=== PATIENT | male | born 1955 | race Caucasian/White ===

== ENCOUNTER 2020-03-05 12:38 | Inpatient (IN) | payer OTHER, SELFPAY ==
[~2020-03-05] VITALS: Ht 152.4 cm; Wt 81.0 kg
--- NOTE | 2020-03-05 12:54 | NUR ---
RA SAT AT 85%, AFTER NASAL CANNULA AT 3LPM PLACED PT O2 SAT AT 92% WITH GOOD WAVE FORM.
--- NOTE | 2020-03-05 12:55 | NUR ---
PT BIB FAMILY C/C GENERALIZE WEAKNESS X 6 DAYS STS SOB X 3 DAYS SAW BY ER PLACED ON MONITOR AWAITING FOR DR RAVINDER WONG
[2020-03-05 13:18] LABS: BASOPHIL % 0.1 % (0-2); PLATELET COUNT 208 x10^3mcL (130-400); RED CELL DISTRIBUTION WIDTH 13.7 % (11.5-14.5)
[2020-03-05 13:30] LABS: CALCIUM 8.2 mg/dL (8.5-10.1); CARBON DIOXIDE 23.2 mmol/L (21-32); CHLORIDE SERUM 101 mmol/L (98-107); GFR1 > 60 mL/min; GLUCOSE SERUM 198 mg/dL (74-106); POTASSIUM SERUM 3.6 mmol/L (3.5-5.1); SODIUM SERUM 137 mmol/L (136-145)
--- NOTE | 2020-03-05 13:30 | NUR ---
PLEASE ENTER FULL NAMES OF IN FLIGHT TECHNICIAN/RN Patient data collected by (IN FLIGHT TECHNICIAN): GOPAL HOLGUIN Assessment reviewed and completed by (RN): JENI AG RN
--- NOTE | 2020-03-05 13:39 | NUR ---
STARTED ON IV ATB
[2020-03-05 13:46] LABS: ALKALINE PHOSPHATASE 84 U/L (46-116); ALT/SGPT 60 U/L (16-63); AST/SGOT 60 U/L (15-37); BILIRUBIN TOTAL 0.9 mg/dL (0.20-1.00); LACTIC DEHYDROGENASE (LDH) 591 U/L (100-190); TOTAL PROTEIN, SERUM 7.7 g/dL (6.4-8.2)
[2020-03-05 13:48] LABS: ALBUMIN 2.5 g/dL (3.4-5.0)
[2020-03-05 13:57] LABS: C REACTIVE PROTEIN 31.1 mg/dL (<=0.9)
[2020-03-05 14:24] LABS: UA SPECIFIC GRAVITY >=1.030 (1.005-1.035); microscopic required? YES; urine erythrocyte NEGATIVE (NEGATIVE)
--- NOTE | 2020-03-05 15:18 | NUR ---
RECEIVED PT FROM ER, PT ABLE TO WALK TO ROOM. AWAKE/ALERT AND ORIENTED. SPEAK LITTLE BIT PARAGUAYAN, MAINLY MEXICAN. DENIES PAIN, SOB ON EXERTION NOTED. MILD LABORED BREATHING NOTED, PLACE ON O2 4LNC, O2SAT 94% AND TELE #24 NSR, HR [address] ELEVATED NOTED. ORIENTED TO CALL LIGHT AND WITHIN REACH, COVID/MRSA SWAB DONE. AYAN RN AT BEDSIDE INTRODUCE TO PATIENT AND RESUME CARE.
[2020-03-05 15:23] VITALS: BP 182/70
[2020-03-05 16:55] VITALS: BP 182/70
--- NOTE | 2020-03-05 18:29 | NUR ---
PATIENT WITH RT. ABLE TO SELF PRONE. PATIENT DENIES SOB AT THIS TIME. WILL CONTINUE TO MONITOR AND ENDORSE TO ONCOMING NURSE.
--- NOTE | 2020-03-05 19:30 | NUR ---
RECEIVED PT FROM AYAN ALCAZAR. PT IS AAOX4 DENIES PIÑA/DIZZINESS. BREATHING EVEN/UNLABORED ON NC 4L/MIN NO SOB NOTED, O2SAT 95%. TELE #24 SR HR 85 DENIES CHEST PAIN/PRESSURE. IV RAC PATENT, FLUSHED WELL SL. AMBULATORY, BSC AND URINAL AT BEDSIDE. NO ACUTE DISTRESS NOTED. SAFETY PRECAUTIONS IN PLACE. WILL MONITOR.
[2020-03-05 21:50] VITALS: BP 158/74
--- NOTE | 2020-03-05 22:46 | NUR ---
REPORT GIVEN TO KELI ALCAZAR FOR CONTINUITY OF CARE.
--- NOTE | 2020-03-05 23:00 | NUR ---
RESUMING CONTINUITY OF CARE. PT RESTING COMFORTABLY. SAO2 READING 93%. DENIES SOB OR PAIN A THIS TIME. CONTACT AND DROPLET PRECAUTIONS IN PLACE. BED IN LOWEST POSITION. CALL LIGHT WITHIN REACH. WILL CONTINUE TO MONITOR.
--- NOTE | 2020-03-06 03:57 | NUR ---
PT RESTING COMFORTABLY. SAO2 READING 93% ON 4LNC. NO RESP DISTRESS NOTED. WILL CONTINUE TO MONITOR.
[2020-03-06 06:20] VITALS: BP 151/85
--- NOTE | 2020-03-06 06:33 | NUR ---
PT RESTED COMFORTABLY THROUGHOUT THE NIGHT WITH NO ACUTE EVENTS OCCURRING DURING THE SHIFT. BREATHING IS EVEN AND UNLABORED ON 5LNC. PT COMPLIANT WITH PRONE POSITIONING. SAO2 READING 94%. DENIES SOB AT THIS TIME. CONTACT AND DROPLET PRECAUTIONS IN PLACE. COMFORT AND SAFETY MEASURES MAINTAINED. ALL NEEDS ASSESSED AND ATTENDED TO. WILL CONTINUE TO MONITOR AND ENDORSE CARE TO DAY SHIFT NURSE.
[2020-03-06 06:53] LABS: BASOPHIL % 0.2 % (0-2); PLATELET COUNT 227 x10^3mcL (130-400)
[2020-03-06 07:13] LABS: CALCIUM 8.8 mg/dL (8.5-10.1); CARBON DIOXIDE 24.6 mmol/L (21-32); CHLORIDE SERUM 104 mmol/L (98-107); CREATININE SERUM 0.9 mg/dL (0.7-1.3); GFR1 > 60 mL/min; GLUCOSE SERUM 167 mg/dL (74-106); MAGNESIUM 2.6 mg/dL (1.8-2.4); PHOSPHOROUS 4.2 mg/dL (2.5-4.9); POTASSIUM SERUM 4.3 mmol/L (3.5-5.1); SODIUM SERUM 140 mmol/L (136-145)
--- NOTE | 2020-03-06 07:27 | NUR ---
RECEIVED PATIENT. AAOX4. STABLE. REMAINS ON 5L NC WITH O2 SATURATION OF 94%. NO ACUTE RESP DISTRESS NOTED. NO C/O PAIN. IV SITE INTACT AND PATENT, SALINE LOCKED. NO ERYTHEMA/SWELLING NOTED. SAFETY PREC IN PLACE. CALL LIGHT WITHIN REACH. WILL CONTINUE TO MONITOR.
[2020-03-06 08:30] VITALS: BP 151/82
--- NOTE | 2020-03-06 12:20 | NUR ---
PATIENT BRUSHED TEETH IN THE RESTROOM FOR ABOUT 5 MINS. PATIENT HAD EPISODE OF DESATURATING TO THE 70'S BUT WENT BACK TO 90% WHEN BACK ON OXYGEN 5L NC. NO ACUTE RESP DISTRESS NOTED. PATIENT STABLE. WILL CONTINUE TO MONITOR.
[2020-03-06 12:35] VITALS: BP 143/82
--- NOTE | 2020-03-06 16:00 | NUR ---
PATIENT STABLE. NO ACUTE CHANGES. WILL CONTINUE TO MONITOR.
--- NOTE | 2020-03-06 16:29 | NUR ---
DR. YI MADE AWARE OF CRP 27.2 AND MG 2.6 AND CLARIFIED ORDERED BLOOD SUGAR CHECK AT 1630. PER DR. YI, THIS ORDER MAY BE DUE TO HIGH AIC. DR. YI MADE AWARE THAT THERE IS NO SLIDING SCALE IN CASE THE PATIENT NEEDS INSULIN. DR. YI VERBALIZED UNDERSTANDING. WILL CONTINUE TO MONITOR.
[2020-03-06 17:09] VITALS: BP 142/98
--- NOTE | 2020-03-06 19:20 | NUR ---
PATIENT STABLE. ALL NEEDS MET. ENDORSED CARE TO REPOSSESSION AGENT NURSE.
--- NOTE | 2020-03-06 19:35 | NUR ---
RECEIVED REPORT FROM DAY SHIFT RN. PT RESTING IN BED. AA&O X4. ON O2 5L VIA NC. DIMINISHED LUNG SOUNDS TO DARIANA BASES. BREATHING EVEN AND UNLABORED. NO C/O CHEST PAIN. IV TO RAC, SALINE LOCKED. SAFETY MEASURES IN PLACE. DEMONSTRATED HOW TO USE THE CALL LIGHT FOR ASSISTANCE. CALL LIGHT WITHIN REACH.
--- NOTE | 2020-03-06 21:39 | NUR ---
COVID TEST RESULT: POSITIVE. ON DROPLET AND CONTACT PRECAUTIONS.
[2020-03-06 22:48] VITALS: BP 131/62
[2020-03-07 05:39] VITALS: BP 158/88
--- NOTE | 2020-03-07 07:00 | NUR ---
PT RESTED IN LONG INTERVALS THROUGHOUT SHIFT. ON O2 5L VIA NC. O2 SAT 94%. NO C/O SOB OR CHEST PAIN. NO DISTRESS NOTED. IV SALINE LOCKED TO RAC. SAFETY MEASURES IN PLACE. CALL LIGHT WITHIN REACH. DROPLET AND CONTACT PRECAUTIONS MAINTAINED. WILL ENDORSE CARE TO DAY SHIFT RN.
--- NOTE | 2020-03-07 07:30 | NUR ---
RECEIVED PATIENT. IN BED, AAOX4. REMAINS ON 5L NC WITH O2 SAT 91%. NO ACUTE RESP DISTRESS NOTED. NO C/O PAIN. IV SITE, WNL. SAFETY PREC IN PLACE. CALL LIGHT WITHIN REACH. PATIENT MADE AWARE THAT HE IS COVID POSITIVE. PATIENT VERBALIZED UNDERSTANDING. WILL CONTINUE TO MONITOR.
--- NOTE | 2020-03-07 07:44 | NUR ---
PATIENT DESATURATING TO LOW 80'S. PER PATIENT IT IS BECAUSE HE MOVED. OXYGEN INCREASED TO 6L NC AND RT MADE AWARE. PER RT, THEY WILL CHECK UP ON PATIENT SOON POSSIBLE. WILL CONTINUE TO MONITOR.
[2020-03-07 07:45] LABS: BASOPHIL % 0.3 % (0-2); PLATELET COUNT 302 x10^3mcL (130-400)
--- NOTE | 2020-03-07 07:50 | NUR ---
RT AT BEDSIDE. PER RT, PATIENT WILL BE PUT ON OXYMIZER AND CONTINUE WITH RT PROTOCOL AND SEE IF THIS HELPS THE PATIENT BETTER. WILL CONTINUE TO MONITOR.
--- NOTE | 2020-03-07 09:20 | NUR ---
PATIENT OXYGEN INCREASED TO 8L OXYMIZER AND WITH SATURATION AT 92%. PATIENT STABLE. DENIES DIFFICULTY BREATHING. ENCOURAGED TO BE ON PRONE POSITIONING. PATIENT VERBALIZED UNDERSTANDING. WILL CONTINUE TO MONITOR.
[2020-03-07 09:31] VITALS: BP 154/84
[2020-03-07 10:24] LABS: CALCIUM 8.9 mg/dL (8.5-10.1); CARBON DIOXIDE 24.6 mmol/L (21-32); CHLORIDE SERUM 107 mmol/L (98-107); CREATININE SERUM 0.9 mg/dL (0.7-1.3); GFR1 > 60 mL/min; GLUCOSE SERUM 105 mg/dL (74-106); MAGNESIUM 2.6 mg/dL (1.8-2.4); PHOSPHOROUS 4.4 mg/dL (2.5-4.9); SODIUM SERUM 144 mmol/L (136-145)
--- NOTE | 2020-03-07 11:35 | NUR ---
PATIENT STABLE. REMAINS ON 8L OXYMIZER WITH 93% O2 SATURATION. NO ACUTRE RESP DISTRESS NOTED. WILL CONTINUE TO MONITOR.
--- NOTE | 2020-03-07 12:00 | NUR ---
DR. SANTORO MADE AWARE ABOUT CRP 10.2, BUN 26.0, AND MG 2.6. NO NEW ORDERS AT THIS TIME. WILL CONTINUE TO MONITOR.
[2020-03-07 13:07] VITALS: BP 152/85
--- NOTE | 2020-03-07 16:27 | NUR ---
PATIENT IS TRANSFERRED TO [facility] UNIT ROOM 223-B VIA WHEELCHAIR ON 8L OXYMIZER. O2 SATURATION AT 94% AT THIS TIME. MILD SOB NOTED WHEN AMBULATING DURING TRANSFER. ALL BELONGINGS TRANSFERRED WITH PATIENT. WILL CONTINUE TO MONITOR.
[2020-03-07 17:38] VITALS: BP 145/94
--- NOTE | 2020-03-07 18:45 | NUR ---
PATIENT STABLE. REMAINS ON 8L OXYMIZER WITH 93% O2 SATURATION. NO ACUTE RESP DISTRESS NOTED. ALL NEEDS MET. WILL ENDORSE ALL CARE TO MEDICAL AFFAIRS DIRECTOR NURSE.
--- NOTE | 2020-03-07 19:35 | NUR ---
Pt. received from day shift, currently resting in bed. Pt. noted to be a/o x4, able to make simple needs known, able to follow commands, no c/o h/a, primarily Hebrew speaking, can understand some Sao Tomean. Pt. is on tele 24, NSR, no c/o chest pain at this time, will cont.t o monitor. Pt. breathign e/u on 8L via oxymizer, satting well at 94-96% at this time, no c/o SOB or s/o distress. Pt. LBM 03/05, no c/o of discomfort, bed side urinal, encoruaged to use prone positoin, no skin issues or c/o pain at this time, will cont. to monitor. IV site RAC 20g, no no s/o drainage, dressing CDI. Otherwise, pt. stable, will cont. to monitor.
[2020-03-07 23:04] VITALS: BP 145/58
--- NOTE | 2020-03-08 01:01 | NUR ---
Pt. needs have been anticipated, no acute distress noted or changes. Pt. able to make needs known, will cont. to deniz.
[2020-03-08 05:47] VITALS: BP 151/83
--- NOTE | 2020-03-08 05:54 | NUR ---
Pt. noted to be resting thorughout shift, no acute distress noted. Pt. satting well throughout the night, will cont. to monitor and endorse care to next shift RN.
--- NOTE | 2020-03-08 07:15 | NUR ---
RECEIVED PT IN BED AWAKE, ALERT, ABLE TO MAKE NEEDS KNOWN. ON DROPLET PRECAUTION FOR COVID19. ON 8L VIA OXYMIZER AT 92%02SAT, DENIES SOB. NO ACUTE RESPIRATORY DISTRESS. ON TELE 24. DENIES PAIN OR DISCOMFORT AT THIS TIME. IV SITE TO [facility]. BED IN LOWEST POSITION. CALL LIGHT WITHIN REACH. WILL CONTINUE TO MONITOR.
[2020-03-08 08:02] LABS: BASOPHIL % 0.3 % (0-2); PLATELET COUNT 335 x10^3mcL (130-400); RED CELL DISTRIBUTION WIDTH 13.8 % (11.5-14.5)
[2020-03-08 09:07] LABS: C REACTIVE PROTEIN 7.2 mg/dL (<=0.9); CARBON DIOXIDE 25.1 mmol/L (21-32); CHLORIDE SERUM 104 mmol/L (98-107); CREATININE SERUM 0.9 mg/dL (0.7-1.3); GFR1 > 60 mL/min; GLUCOSE SERUM 99 mg/dL (74-106); SODIUM SERUM 141 mmol/L (136-145)
[2020-03-08 09:10] LABS: MAGNESIUM 2.5 mg/dL (1.8-2.4); PHOSPHOROUS 4.1 mg/dL (2.5-4.9)
[2020-03-08 10:06] VITALS: BP 158/82
[2020-03-08 12:51] VITALS: BP 141/85
[2020-03-08 16:25] VITALS: BP 131/81
--- NOTE | 2020-03-08 18:59 | NUR ---
PT IN BED AWAKE, IN ROOM AMBULATING FREQUENTLY. ON DROPLET ISOLATION FOR COVID19. CONTINUE WITH 8L VIA OXYMIZER WITH 94%SAT. DENIES PAIN OR DISCOMFORT AT THIS TIME. IV SITE TO RAC SALINE LOCK. ON TELE 24. BED IN LOWEST POSITION. WILL ENDORSE CARE TO INCOMING NURSE.
--- NOTE | 2020-03-08 19:35 | NUR ---
Pt. received from day shift, currently resting in bed. Pt. is a/o x4, able to make simple needs known, able to follow simple commands, no c/o h/a, primarily Omani speaking, can understand simple Wolof. Pt. has no c/o chest pain or pain at this time, will cont. to monitor. Pt. on 8L oxymizer, breathing e/u, no acute distress or SOB noted. Pt. noted to be SOB upon exertion. LBM today, no issues reported, pt. BRP and urinal at bedside. Pt. has gen weakness, but able to reposition self. Pt. has no skin issues or c/o pain, IV site on RAC 20 g patent and dressing CDI. Otherwise, pt. stable, will cont. to monitor.
[2020-03-08 21:53] VITALS: BP 145/87
--- NOTE | 2020-03-09 01:00 | NUR ---
Pt. no acute changes throughout shift, noted to be resting. will cont. to monitor at this time.
[2020-03-09 05:31] VITALS: BP 139/80
--- NOTE | 2020-03-09 05:54 | NUR ---
Pt. noted to be resting throughout shift, no acute distress noted. Pt. ambulatory throughout room, able to make needs knonw, and follow commands, will cont. to monitor and endorse care to next shift Rn.
[2020-03-09 07:26] LABS: CALCIUM 8.7 mg/dL (8.5-10.1); CARBON DIOXIDE 25.2 mmol/L (21-32); CHLORIDE SERUM 104 mmol/L (98-107); CREATININE SERUM 0.8 mg/dL (0.7-1.3); GFR1 > 60 mL/min; GLUCOSE SERUM 96 mg/dL (74-106); POTASSIUM SERUM 3.7 mmol/L (3.5-5.1); SODIUM SERUM 140 mmol/L (136-145)
[2020-03-09 08:00] VITALS: BP 141/79
--- NOTE | 2020-03-09 08:25 | NUR ---
0700: REPORT TAKEN FROM CUSTOMS EXAMINER NURSE, PER REPORT THE PATIENT IS ALERT AND ORIENTED AND IN NO DISTRESS AT THIS TIME. PATIENT IS ON TELE 24 AND FOUND TO BE NSR AT TIME OF REPORT, AND SATS ARE 94% ON 8 LITERS OXYMIZER PER RPEORT. WILL CONTINUE TO MONITOR.
[2020-03-09 12:00] VITALS: BP 157/82
[2020-03-09 17:35] VITALS: BP 136/54
--- NOTE | 2020-03-09 19:17 | NUR ---
REPORT GIVEN TO ADULT BASIC EDUCATION MANAGER NURSE, ALL QUESTIONS ADDRESSED, CARE ENDORSED
--- NOTE | 2020-03-09 19:35 | NUR ---
RECIEVED PT FROM PREVIOUS SHIFT NURSE. PT RESTING IN BED, EASILY AROUSABLE, AOX4, ABLE TO FOLLOW COMMANDS, PRIMARILY ESTONIAN SPEAKING BUT ABLE TO LET NEEDS KNOWN, DENIES PIÑA,N/V, OR PAIN AT THE MOMENT. RR EVEN AND UNLABORED ON 8L OXYMIZER, CHEST RISING EQUALLY, DENIES SOB OR DIFFICULTY BREATHING. TELE #24 NSR, CONT PULSE OX: 94%, DENIES CHEST PAIN OR PRESSURE. NO SIGNS OF ACUTE CHANGE OR DISTRESS NOTED. IV RAC WNL, NO ERYTHEMA, EDEMA, OR DRAINAGE NOTED. PT ON CONTACT/DROPLET ISOLATION FOR COVID-19 (+). PT IS ENCOURAGED TO PRONE. BED IN LOWEST POSITION, CALL LIGHT WITHIN REACH, AND SIDE RAILS UP X2. WILL CONTINUE TO MONITOR.
[2020-03-09 22:12] VITALS: BP 99/50
--- NOTE | 2020-03-10 04:55 | NUR ---
PT RESTING COMFORTABLY IN BED, EASILY AROUSABLE. RR EVEN AND UNLABORED ON 8L OXYMIZER, CHEST RISING EQUALLY. TELE #24 NSR, CONT PULSE OX 02: 94%. NO SIGNS OF ACUTE CHANGE OR DISTRESS NOTED. BED IN LOWEST POSITION, SIDE RAILS UP X2, AND CALL LIGHT WITHIN REACH. WILL CONTINUE TO MONITOR.
--- NOTE | 2020-03-10 06:24 | NUR ---
PT RESTING ON SIDE, EASILY AROUSABLE. RR EVEN AND UNLABORED ON 8L OXYMIZER, CHEST RISING EQUALLY. TELE #24 NSR, CONT PULSE OX 02: 92%. NO SIGNS OF ACUTE CHANGE OR DISTRESS NOTED THROUGHOUT THE SHIFT. ALL NEEDS MET. IV RAC WNL, NO ERYTHEMA, EDEMA, OR DRAINAGE NOTED. PT ON DROPLET/CONTACT ISOLATION FOR COVID-19(+). BED IN LOWEST POSITION, SIDE RAILS UP X2, AND CALL LIGHT WITHIN REACH. WILL ENDORSE CARE TO ONCOMING SHIFT NURSE, AND WILL CONTINUE TO MONITOR.
[2020-03-10 06:25] VITALS: BP 122/77
--- NOTE | 2020-03-10 07:41 | NUR ---
RECEIVED PT FROM NIGHT NURSE. PT A/A. TELE 24, NSR. BREATHING EQUAL/UNLABORED ON 8L/OXYMIZER, SATING AT 95%. ON CONT PULSE OX. IV SITE WNL. BED IN LOW POSITON, CALL LIGHT IN REACH, SAFETY PRECAUTIONS IN PLACE. WILL CONTINUE TO MONITOR
[2020-03-10 07:59] LABS: ALKALINE PHOSPHATASE 76 U/L (46-116); ALT/SGPT 118 U/L (16-63); AST/SGOT 49 U/L (15-37); BILIRUBIN TOTAL 0.7 mg/dL (0.20-1.00); CALCIUM 8.8 mg/dL (8.5-10.1); CARBON DIOXIDE 24.4 mmol/L (21-32); CHLORIDE SERUM 105 mmol/L (98-107); CREATININE SERUM 0.8 mg/dL (0.7-1.3); GFR1 > 60 mL/min; GLUCOSE SERUM 100 mg/dL (74-106); POTASSIUM SERUM 3.9 mmol/L (3.5-5.1); SODIUM SERUM 139 mmol/L (136-145); TOTAL PROTEIN, SERUM 6.8 g/dL (6.4-8.2)
[2020-03-10 08:11] LABS: ALBUMIN 2.3 g/dL (3.4-5.0)
[2020-03-10 09:14] VITALS: BP 110/63
[2020-03-10 12:40] VITALS: BP 115/68
--- NOTE | 2020-03-10 12:59 | NUR ---
PT SITTING UP IN CHAIR A/A. BREATHING EQUAL/UNLABORED ON 8L/OXYMIZER. EDUCATED ON REMDESIVIR, VERBALIZED UNDERSTANDING. IVF INFUSING, SITE WNL. NO ACUTE CHANGES/PAIN/DISTRESS. WILL CONTINUE TO MONITOR
[2020-03-10 16:14] VITALS: BP 121/69
--- NOTE | 2020-03-10 18:20 | NUR ---
PT SITTING UP A/A. BREATHING EQUAL/UNLABORED ON 8L/OXYMIZER, SATING AT 92%. TELE 24, NSR. IV SITE WNL. NO ACUTE CHANGES/PAIN/DISTRESS. BED IN LOW POSITION, CALL LIGHT IN REACH, SAFETY PRECAUTIONS IN PLACE. WILL ENDORSE TO NIGHT NURSE
--- NOTE | 2020-03-10 19:56 | NUR ---
RECIEVED PT FROM PREVIOUS [facility] NURSE. PT FOUNDING LYING ON SIDE, EASILY AROUSABLE, AOX4, ABLE TO FOLLOW COMMANDS, DENIES PIÑA, N/V, OR PAIN AT THE MOMENT, NO FACIAL DROOPING NOTED, AND PRIMARILY CYPRIOT SPEAKING BUT ABLE TO LET NEEDS KNOWN. RR EVEN AND UNLABORED BREATHING ON 8L OXYMIZER, ENCOURAGED TO PRONE. TELE #24 NSR, CONT PULSE OX O2:92%. NO SIGNS OF ACUTE CHANGE OR DISTRESS NOTED. IV RAC WNL, NO ERYTHEMA, EDEMA, OR DRAINAGE NOTED. PT ON DROPLET/CONTACT ISOLATION FOR COVID-19 (+). BED IN LOWEST POSITION, SIDE RAILS UP X2, AND CALL LIGHT WITHIN REACH. WILL CONTINUE TO MONITOR.
[2020-03-10 21:06] VITALS: BP 133/74
--- NOTE | 2020-03-11 01:37 | NUR ---
PT RESTING COMFORTABLY IN BED, EASILY AROUSABLE. RR EVEN AND UNLABORED IN 8L OXYMIZER, CHEST RISING EQUALLY. TELE #24 NSR, CONT PULSE OX 02:95%. NO SIGNS OF ACUTE CHANGE OR DISTRESS NOTED. BED IN LOWEST POSITION, SIDE RAILS UP X2, AND CALL LIGHT WITHIN REACH. WILL CONTINUE TO MONITOR.
[2020-03-11 06:00] VITALS: BP 129/77
[2020-03-11 06:50] LABS: BASOPHIL % 0.2 % (0-2); RED CELL DISTRIBUTION WIDTH 13.7 % (11.5-14.5)
[2020-03-11 06:55] LABS: PLATELET COUNT 436 x10^3mcL (130-400)
--- NOTE | 2020-03-11 06:56 | NUR ---
PT RESTING COMFORTABLY IN BED, EASILY AROUSBELE. RR EVEN AND UNLABORED ON 8L OXYMIZER, CHEST RISNIG EQUALLY. TELE #24 NSR, CONT PULSE OX O2:91%. NO SIGNS OF ACUTE CHANGE OR DISTRESS NOTED. ALL NEEDS MET THROUGH THE SHIFT. IV RAC WNL. BED IN LOWEST POSITION, SIDE RAILS UP X2, AND CALL LIGHT WITHIN REACH. WILL ENDORSE CARE TO ONCOMING SHIFT NURSE, AND WILL CONTINUE TO MONITOR.
--- NOTE | 2020-03-11 08:17 | NUR ---
0700: REPORT TAKEN FROM DEVELOPMENT GEOLOGIST NURSE , PER REPORT PATIENT IS IN NO ACUTE DISTRESS AT THIS TIME, TELE AND PULSE OX MONITOR IN PLACE. WILL CONTINUE TO MONITOR
[2020-03-11 08:19] LABS: ALKALINE PHOSPHATASE 73 U/L (46-116); ALT/SGPT 105 U/L (16-63); AST/SGOT 36 U/L (15-37); BILIRUBIN DIRECT 0.17 mg/dL (0.0-0.2); BILIRUBIN TOTAL 0.7 mg/dL (0.20-1.00); CALCIUM 8.7 mg/dL (8.5-10.1); CARBON DIOXIDE 25.5 mmol/L (21-32); CHLORIDE SERUM 105 mmol/L (98-107); CREATININE SERUM 0.7 mg/dL (0.7-1.3); GFR1 > 60 mL/min; GLUCOSE SERUM 97 mg/dL (74-106); MAGNESIUM 2.3 mg/dL (1.8-2.4); POTASSIUM SERUM 4.2 mmol/L (3.5-5.1); SODIUM SERUM 140 mmol/L (136-145); TOTAL PROTEIN, SERUM 6.7 g/dL (6.4-8.2)
[2020-03-11 08:28] LABS: ALBUMIN 2.3 g/dL (3.4-5.0)
[2020-03-11 08:54] VITALS: BP 137/77
[2020-03-11 12:10] VITALS: BP 126/70
--- NOTE | 2020-03-11 15:49 | NUR ---
Initial Nutrition Assessment: 233B TARA ARREOLA 64M MR Dx: PNA, hypoxia, COVID r/o PMHx: none noted PSHx: none noted Labs: (03/11) BUN 21H, AST 105H Meds: Colace, Cozaar, Decadron, Lovenox, remdesivir, Ventolin PRN meds: D50%, Humulin, Hydralazine, Mucinex, Tylenol, Zofran Diet: Regular PO intake since admission: 85-100% x 7 meals with average PO intake of 96%. Adequate Ht: 152.4cm/60in Wt: 80.995kg/178lbs BMI: 34.9 Bed scale: unknown IBW: 48.18kg/106lbs %IBW: 168.1% ABW: 56kg UBW: unknown Age: 64 Food Allergies: unknown Edema: none noted Last BM: 03/10 Skin: intact Jay: 21 Per H and P (03/05), 64-year-old male without significant past medical history who presents to the hospital with shortness of breath progressing over the last 5 days. Patient states that his was diagnosed with coronavirus. His is doing okay now and did not require hospitalization. Patient said that his shortness of breath has been progressing although denies fever chills no headache no muscle aches also denies cough. When he presented in the ER he was hypoxic now requiring 4 L O2 nasal cannula and his chest x-ray was typical for pneumonia due to coronavirus. Pt was admitted with dx: acute hypoxic respiratory failure d/t probable COVID with PNA, Probable COVID PNA, uremia d/t possible mild dehydration, increased d-dimer mostly likely d/t CK storm, elevated CRP RD Note (03/11) Per progress note (03/10) pt was tested positive for COVID and on 9L oximizer today. As noted in RN reassessment note (03/11), pt was tolerating diet well with no c/o N/V/D. Pt had 96% average PO intake since admission. Pt's diet approximately provided 2588kcal and 116g protein meeting 100% of estimated kcal and protein needs. Problem with: N/V/D/C: none noted Problems with: Chewing: Swallowing: none noted Current appetite: good per flowsheet average. Recent wt change: unknown %wt change: unknown Height: unknown Vitamin/Supplement use: unknown Special diet at home: unknown Physical activity: unknown Nutrition education given (specify specific nutrition education and handout given): not given at this time Food-drug interactions? Education given? n/a Estimated Nutritional Needs Based on adjusted body weight (56kg) Energy: 0038-2412 kcal/day (30-35 kcal/kg for viral infection) Protein: 67-84 g/day (1.2-1.5 g/kg for viral infection) Fluid: 7608-6105 mL/day (1 mL/kcal) Nutrition Diagnosis: 1. Increased energy and protein needs r/t viral infection a/e/b pt was tested COVID positive. Intervention 1. Recommend continue regular diet as tolerate Monitor/Evaluate Goal: PO intake at least 75% of estimated needs Monitor: PO intake, Labs, GI function F/U in 7 days as low risk 03/18
--- NOTE | 2020-03-11 15:49 | NUR ---
1. Recommend continue regular diet as tolerate
[2020-03-11 16:29] VITALS: BP 154/92
--- NOTE | 2020-03-11 19:37 | NUR ---
REPORT GIVE TO FIBER GLASS WORKER NURSE, CARE ENDORSED
--- NOTE | 2020-03-11 20:15 | NUR ---
PATIENT RESTING IN BED, A/O X4, VERBALLY RESPONSIVE, SPEAKS KOREAN AND NEPALESE. ON DROPLET/CONTACT FOR POSITIVE COVID TEST RESULT, BREATHING E/U ON 4L OXYMIZER, SPO2 98%, DENIES SOB, STATES THAT HE "FEELS MUCH BETTER NOW", REINFORCED TEACHING OF LAYING IN PRONE POSITION DURING SLEEP, PATIENT VERBALIZED UNDERSTANDING. TELE #24, HR 70, DENIES CHEST PAIN AND PAIN IN GENERAL. ABD SOFT AND ROUND. NO EDEMA NOTED. AMBULATORY. IV RAC INTACT, FLUSHED AND SALINE LOCKED. CALL LIGHT WITHIN REACH, BED IN LOWEST POSITION. WILL CONTINUE TO MONITOR.
[2020-03-11 21:16] VITALS: BP 144/74
--- NOTE | 2020-03-12 00:40 | NUR ---
PATIENT RESTING IN BED WITH EYES CLOSED, LAYING IN PRONE POSITION. EVEN CHEST RISE AND FALL ON 4L OXYMIZER, SPO2 96%. TELE #24, HR 58. SHOWS NO SIGN OF PAIN OR DISTRESS. CALL LIGHT WITHIN REACH, WILL CONTINUE TO MONITOR.
--- NOTE | 2020-03-12 06:00 | NUR ---
PATIENT RESTING IN BED, GEORGIAN SPEAKER, BREATHING E/U ON 4L OXYMIZER, SP02 93%, DENIES SOB AND PAIN. IV RAC, INTACT AND SALINE LOCKED. NO SIGNFICIANT CHANGES DURING SHIFT. CALL LIGHT WITHIN REACH, ALL NEEDS MET, DROPLET/CONTACT PRECAUTIONS AND SAFETY PRECAUTIONS MAINTAINED THROUGHOUT SHIFT. WILL ENDORSE CARE TO DAY NURSE.
[2020-03-12 06:20] VITALS: BP 113/53
[2020-03-12 06:52] LABS: BASOPHIL % 0.2 % (0-2); RED CELL DISTRIBUTION WIDTH 13.4 % (11.5-14.5)
[2020-03-12 06:53] LABS: PLATELET COUNT 428 x10^3mcL (130-400)
[2020-03-12 07:01] LABS: CALCIUM 8.5 mg/dL (8.5-10.1); CHLORIDE SERUM 104 mmol/L (98-107); CREATININE SERUM 0.8 mg/dL (0.7-1.3); GFR1 > 60 mL/min; GLUCOSE SERUM 120 mg/dL (74-106); MAGNESIUM 2.3 mg/dL (1.8-2.4); PHOSPHOROUS 3.6 mg/dL (2.5-4.9); POTASSIUM SERUM 3.9 mmol/L (3.5-5.1); SODIUM SERUM 139 mmol/L (136-145)
[2020-03-12 07:11] LABS: ALBUMIN 2.3 g/dL (3.4-5.0); BILIRUBIN DIRECT 0.22 mg/dL (0.0-0.2); BILIRUBIN TOTAL 0.79 mg/dL (0.20-1.00); TOTAL PROTEIN, SERUM 6.5 g/dL (6.4-8.2)
--- NOTE | 2020-03-12 07:20 | NUR ---
RECEIVED PT FROM NIGHT RN. AAOX4, SPEECH CLEAR. DENIES PIÑA/DIZZINESS. RES E/U, DENIES SOB. O2 SAT 92% ON 4LPM OXYMIZER. TELE MONITOR 24 SHOWING SR, DENIES CP/PRESSURE. PERIPHERAL PULSES PALPABLE W NO EDEMA NOTED. ABDOMEN SOFT. DENIES N/V/D/C. GENERALIZED WEAKNESS BUT PATIENT REPORTS ABLE TO AMBULATE TO CHAIR TOLERATED. IV SITE TO [facility] W NO S/S OF INFILTRATION NOTED. BED IN LOWEST POSITION. CALL LIGHT WITHIN REACH. WILL CONTINUE TO MONITOR
[2020-03-12 09:12] VITALS: BP 124/66
--- NOTE | 2020-03-12 10:00 | NUR ---
RES E/U, NO RESPIRATORY NOTED. DENIES SOB. O2 SAT 96% ON 4LPM OXYMIZER. DECREASED TO 3LPM OXYMIZER. O2 SAT 91%. EDUCATED PT HOW TO USE INCENTIVE SPIROMETER. PT ABLE TO DEMONSTRATE UNDERSTANDING
[2020-03-12 13:41] VITALS: BP 121/71
[2020-03-12 16:58] VITALS: BP 134/76
--- NOTE | 2020-03-12 19:26 | NUR ---
NO SIGNIFICANT CHANGES NOTED. WILL ENDORSE CARE TO NEXT SHIFT
--- NOTE | 2020-03-12 20:05 | NUR ---
PATIENT RESTING IN BED, A/O X4, VERBALLY RESPONSIVE, SPEAKS ICELANDIC AND TAJIK. BREATHING E/U ON 2L NC, SPO2 95%, DENIES SOB, ON DROPLET/CONTACT PRECAUTIONS FOR POSITIVE COVID. TELE #24, HR 70, DENIES CHEST PAIN AND PAIN IN GENERAL. ABD SOFT AND ROUND, STATED THAT HE HAD A REGULAR BM TODAY. NO EDEMA NOTED. IV RAC INTACT, FLUSHED AND SALINE LOCKED. CALL LIGHT WITHIN REACH, BED IN LOWEST POSITION. WILL CONTINUE TO MONITOR.
[2020-03-12 21:30] VITALS: BP 132/69
--- NOTE | 2020-03-13 00:58 | NUR ---
PATIENT'S TELE LEADS CAME OFF. WENT TO CHECK IN ON PATIENT, PATIENT RESTING IN BED, WITH EYES CLOSED. REPLACED TELE LEAD STICKERS, TELE LEADS BACK ON, TELE #24, HR 62, SINUS RHYTHM. EVEN CHEST RISE AND FALL, ON 2L NC, SPO2 98%, SHOWS NO SIGN OF PAIN OR DISTRESS. CALL LIGHT WITHIN REACH, WILL CONTINUE TO MONITOR.
--- NOTE | 2020-03-13 06:15 | NUR ---
PATIENT RESTING IN BED, BREATHING E/U ON 2L NC, SPO2 98%, DENIES SOB, ON DROPLET/CONTACT PRECAUTIONS FOR POSITIVE COVID. TELE #24, HR 58, DENIES CHEST PAIN AND PAIN IN GENERAL. ALL SIGNIFICANT CHANGES DURING SHIFT. CALL LIGHT WITHIN REACH, ALL NEEDS MET, DROPLET/CONTACT PRECAUTIONS MAINTAINED THROUGHOUT SHIFT. WILL ENDORSE CARE TO DAY NURSE.
[2020-03-13 06:16] VITALS: BP 134/66
--- NOTE | 2020-03-13 07:30 | NUR ---
RECEIEVED PT FROM QI SPECIALIST RN. Dior/JANES. TELE#24. DENIES CHEST PAIN/PRESSURE. RESPIRATIONS EQUAL AND UNLABORED FOUND ON RA, SPO2 ON RA SITTING UP AT BEDSIDE IS 92%, PT USING INCENTIVE SPIROMETER AT BEDSIDE. PT DENIES ANY SOB AT THIS TIME. PT REPORTS BREATHING HAS IMPROVED. PT DENIES ANY PAIN AT THIS TIME. PT DENIES ANY N/V OR ABDOMINAL PAIN. IV TO RAC FLUSHED WELL, NO REDNESS OR SWELLING NOTED. WILL CONTINUE TO MONITOR. CALL LIGHT IN REACH. BED IN LOWEST POSITION.
[2020-03-13 08:08] LABS: BILIRUBIN DIRECT 0.19 mg/dL (0.0-0.2); BILIRUBIN TOTAL 0.78 mg/dL (0.20-1.00); TOTAL PROTEIN, SERUM 6.5 g/dL (6.4-8.2)
[2020-03-13 08:17] LABS: ALBUMIN 2.4 g/dL (3.4-5.0)
[2020-03-13 09:26] VITALS: BP 127/70
--- NOTE | 2020-03-13 12:06 | NUR ---
CALLED PHARMACY IT MAKE THEM AWARE READY FOR REMDESIVIR TO BE GIVEN.
[2020-03-13 14:00] VITALS: BP 136/76
[2020-03-13] MEDS ORDERED: COZ50 PO (14:17)
[2020-03-13] MEDS ORDERED: VENTOLIN H0.09 MG/A1 INH (14:18)
[2020-03-13] MEDS ORDERED: GLUCOPHAGE500 MG PO (14:20)
--- NOTE | 2020-03-13 14:54 | NUR ---
NOTED DISCHARGE ORDER, PT STILL NEEDS ONE MORE DOSE OF REMDESIVIR FOR TOMORROW, PAGED DR. HAYES TO CLARIFY IF PT SHOULD STILL BE D/CD TODAY. AWAITING CALL BACK.
--- NOTE | 2020-03-13 15:04 | NUR ---
SPOKE WITH DR. HAYES REGARDING LAST DOSE OF REMDESIVIR ORDERED FOR TOMORROW, PER . ABIGAIL WILL CLARIFY WITH DR. BULLOCK IF PT CAN SKIP LAST DOSE AND WILL NOTIFY
[2020-03-13 15:14] VITALS: Ht 152.4 cm; Wt 81.0 kg
[2020-03-13 16:20] VITALS: BP 136/76
[2020-03-13 16:28] VITALS: BP 139/73
--- NOTE | 2020-03-13 18:40 | NUR ---
PT SITTING UP AT BEDSIDE. PT GIVEN DISCHARGE INSTRUCTIONS. PT ENCOURAGED TO MONITOR FOR WORSENING S/S ON SOB, FEVER, OR CHEST PAIN. PT MADE AWARE OF FOLLOW UP APPOINTMENT WITH PRIMARY CARE PROVIDER ON 03/25/20. PT MADE AWARE OF NEW PRESCRIPTION FOR COZAAR, METFORMIN AND ALBUTEROL MDI, PT INSTRUCTED ON HOW TO TAKE. PORTABLE O2 AT BEDSIDE WITH CONCENTRATOR, EXPLAINED TO PT HOW TO USE, PT ALSO SHOWN HOW TO USE SPO2 SENSOR, PT RETURNED REDEMONSTRATION. PT ENCOURAGED TO SELF QUARANTINE FOR 2 WEEKS AND TO WEAR A MASK AT ALL TIMES WHEN LEAVING THE HOUSE. PT ENCOURAGED TO TAKE IS HOME AND CONTINUE TO USE Q1HR. ALL QUESTIONS AND CONCERNS ADRESSED. NO PROBLEMS ENCOUNTERED. TELE RETURNED TO BENCH CHEMIST.
== END 2020-03-13 20:16 | disposition home or self-care (01) | DRG 137 ==
LOC: ED 12:38 → DU 13:53
PROVIDERS: Emergency Medicine; Internal Medicine; ADMIT Internal Medicine; ATTEND Internal Medicine
DX: U07.1 COVID-19 (principal); J96.01 Acute respiratory failure with hypoxia; J12.89 Other viral pneumonia; Z68.39 Body mass index [BMI] 39.0-39.9, adult; E66.9 Obesity, unspecified; E86.0 Dehydration; E44.0 Moderate protein-calorie malnutrition; G47.33 Obstructive sleep apnea (adult) (pediatric)
CPT/HCPCS: 36600; 82962; 83880; 87804; G0378; J0456; J0696; J1100; J1650; J1815; J7040; J7050; J7060; J8540; Q0092; U0003-CS

== ENCOUNTER 2020-09-14 06:22 | Inpatient (IN) | payer OTHER ==
[~2020-09-14] VITALS: Ht 152.4 cm; Wt 84.4 kg
[~2020-09-14 06:22] MED LIST: COZ50 PO; GLUCOPHAGE500 MG PO; VENTOLIN H0.09 MG/A1 INH
[2020-09-14 06:32] VITALS: Ht 152.4 cm; Wt 84.4 kg
--- NOTE | 2020-09-14 06:45 | NUR ---
PT BIB SELF FOR ABD PAIN X3 DAYS. PT ABD IS OBESE, SOFT, AND NON-RIGID. PT DENIES ANY VOMITING OR DIARRHEA. PT STS NAUSEA X3 DAYS. PT STS EATING MAKES THE NAUSEA WORSE. PT STS LAST MEAL WAS CHICKEN SOUP YESTHERDAY. PT STS DRINKING HOT TERESSA X50 MINS AGO. PT A&O X4, RESP E/U, EQUAL CHEST RISE, AND NO DISTRESS. WILL CONTINUE TO MONITOR THE PT.
--- NOTE | 2020-09-14 07:20 | NUR ---
REPORT RECIEVED FROM INGE REEVES, I WILL ASSUME FURTHER CARE OF THIS PT
--- NOTE | 2020-09-14 07:33 | NUR ---
PT TAKEN OFF ER FLOOR TO CT
--- NOTE | 2020-09-14 07:51 | NUR ---
PT RETURNED TO ER FLOOR FROM CT. PT LAYING IN POSITION OF COMFORT. PT AAOX4, RESP E/U, NO DISTRESS NOTED. FLUIDS INFUSING PER EMAR ORDERS
--- NOTE | 2020-09-14 08:14 | NUR ---
SPOKE TO LAB REGARDING PENDING LAB RESULTS. PER LAB, THEY WILL RECIEVE LABS AT THIS TIME. WILL FOLLOW UP.
[2020-09-14 08:39] LABS: UA SPECIFIC GRAVITY 1.025 (1.005-1.035); microscopic required? YES; urine erythrocyte TRACE (NEGATIVE)
[2020-09-14 08:40] LABS: CALCIUM 8.6 mg/dL (8.5-10.1); CARBON DIOXIDE 24.9 mmol/L (21-32); CHLORIDE SERUM 99 mmol/L (98-107); CREATININE SERUM 0.8 mg/dL (0.7-1.3); GFR1 > 60 mL/min; GLUCOSE SERUM 162 mg/dL (74-106); POTASSIUM SERUM 4.3 mmol/L (3.5-5.1); SODIUM SERUM 135 mmol/L (136-145)
[2020-09-14 08:44] LABS: ALKALINE PHOSPHATASE 104 U/L (46-116); ALT/SGPT 89 U/L (16-63); AST/SGOT 84 U/L (15-37); BILIRUBIN TOTAL 1.9 mg/dL (0.20-1.00); LIPASE 197 IU/L (73-393); TOTAL PROTEIN, SERUM 6.9 g/dL (6.4-8.2)
[2020-09-14 08:45] LABS: PLATELET COUNT 212 x10^3mcL (152-348)
[2020-09-14 08:48] LABS: ALBUMIN 2.5 g/dL (3.4-5.0)
--- NOTE | 2020-09-14 10:06 | NUR ---
PT LAYING IN ER GURNEY IN POSITION OF COMFORT. PT REPORTS "I FEEL A LOT BETTER". PT AAOX, RESP E/U, NO DISTRESS NOTED. IV MEDS INFUSING PER EMAR ORDERS. SAFETY PRECAUTIONS IN PLACE. WILL CONTINUE TO MONITOR
[2020-09-14 10:07] LABS: RED CELL DISTRIBUTION WIDTH 14.7 % (12.1-16.2)
[2020-09-14 10:08] LABS: BASOPHIL % 0 % (0.2-1.5)
--- NOTE | 2020-09-14 10:18 | NUR ---
IV CONTRAST PLACED AT BEDSIDE. PT EDUCATED BY RADIOLOGY TO FINISH ALL OF CONTRAST. PER RADIOLOGY, PT SHOULD FINISH CONTRAST BY 1200, REPEAT CT AT 1230. WILL MONITOR PT
--- NOTE | 2020-09-14 11:03 | NUR ---
PT NOTED TO HAVE FINISHED CONTRAST. INFORMED PT NEXT CT WILL BE AT 1230. FLUIDS INFUSING PER EMAR ORDERS. PT AAOX4, RESP E/U, NO DISTRESS NOTED. WILL CONTINUE TO MONITOR
--- NOTE | 2020-09-14 11:58 | NUR ---
PT TAKEN OFF ER FLOOR TO CT
--- NOTE | 2020-09-14 12:17 | NUR ---
PT RETURNED TO ER FROM CT
--- NOTE | 2020-09-14 13:44 | NUR ---
REPORT CALLED TO INGE BURGOS. SHE WILL ASSUME FURTHER CARE OF THIS PT
[2020-09-14 15:00] VITALS: BP 132/72
--- NOTE | 2020-09-14 16:01 | NUR ---
1400 RECEIVED FROM ED VIA WHEELCHAIR, ALERT AND ORIENTED X 4.ORIENTED TO UNIT, CALL LIGHT AND PLANOFCARE. INFORMED ON NOTHING BY MOUTH STATUS PENDING PROCEDURE.
[2020-09-14 16:49] VITALS: BP 140/66
--- NOTE | 2020-09-14 19:50 | NUR ---
RECEIVED PT IN BED RESTING COMFORTABLY WITH EYES CLOSED, EASILY AROUSABLE. A/OX4 ABLE TO MAKE NEEDS KNOWN, ABLE TO FOLLOW COMMANDS, SPEECH IS CLR, NO PIÑA OR DIZZINESS. LUNG SOUNDS CLR, RESP EVEN AND UNLABORED, ON RA. RADIAL AND PEDALPULSES PRESENT, NO EDEMA NOTED. ABD DISTENDED AND FIRM, C/O ABD PAIN 2/10, TOLERABLE AT THIS TIME, DENIES NVD, REMAINED NPO FOR POSSIBLE SURGERY. VOIDS FREELY, NO DISCOMFORT REPORTED. SKIN IS WRM AND DRY, IVSITE TO THE RT HAND PATENT AND FLUSHING WELL INFUSING D5 NS AT 80ML/HR. BED TO LOWEST POSITION, CALL LIGHT WITHIN REACH. WILL CONT TO MONITORFOR CHANGESI CONDITION.
[2020-09-14 21:22] VITALS: BP 99/78
[2020-09-15 06:22] VITALS: BP 125/76
[2020-09-15 07:53] VITALS: BP 109/71
[2020-09-15 08:52] VITALS: BP 122/62
[2020-09-15 09:31] LABS: BASOPHIL % 0.1 % (0.2-1.5); PLATELET COUNT 224 x10^3mcL (152-348)
[2020-09-15 09:43] LABS: ALKALINE PHOSPHATASE 98 U/L (46-116); ALT/SGPT 85 U/L (16-63); AST/SGOT 41 U/L (15-37); BILIRUBIN TOTAL 1.1 mg/dL (0.20-1.00); CARBON DIOXIDE 23.8 mmol/L (21-32); CHLORIDE SERUM 103 mmol/L (98-107); CREATININE SERUM 0.8 mg/dL (0.7-1.3); GFR1 > 60 mL/min; GLUCOSE SERUM 141 mg/dL (74-106); LACTIC DEHYDROGENASE (LDH) 236 U/L (100-190); MAGNESIUM 2.3 mg/dL (1.8-2.4); POTASSIUM SERUM 3.5 mmol/L (3.5-5.1); SODIUM SERUM 136 mmol/L (136-145)
[2020-09-15 10:34] LABS: C REACTIVE PROTEIN 9.6 mg/dL (<=0.9)
[2020-09-15 10:45] LABS: ALBUMIN 1.9 g/dL (3.4-5.0); TOTAL PROTEIN, SERUM 5.7 g/dL (6.4-8.2)
[2020-09-15 10:52] LABS: rbc morphology (normal/abnorm) NORMAL (NORMAL)
[2020-09-15 16:46] VITALS: BP 106/54
--- NOTE | 2020-09-15 19:08 | NUR ---
RECEIVED PT FROM DAY RN, PT ASLEEP BUT EASILY AROUSED AND PLEASANT. PT A/O X4 . ENGLISH AND URDU SPEAKING. MED SURG STATUS WITH DENIAL OF CHEST PAIN. PT ON RA AND TOLERATING WELL WITH NO SOB OR DISTRESS. LUNG SOUNDS CTA. BOWELS ARE HYPOACTIVE X4-PT REPORTS MILD PAIN IN BILAT LOWER QUADRANTS. LAST BM 09/14/20. PT NPO PENDING PROCEDURE. IV IN RFA RUNNING D5NS AT 80ML/HR-NO S/S OF INFILTRATION. PT AMBULATORY WITH NO WEAKNESS, SKIN INTACT. ALL NEEDS MET, WILL CONTINUE TO MONITOR. BED LOW AND LOCKED, CALL LIGHT IN REACH
[2020-09-15 21:57] VITALS: BP 118/64
--- NOTE | 2020-09-16 01:00 | NUR ---
PT ASLEEP IN ROOM, NO COMPLAINTS OF PAIN AT THIS TIME. WILL CONTINUE TO MONITOR
--- NOTE | 2020-09-16 04:47 | NUR ---
PT SLEPT WELL ALL NIGHT WITH NO COMPLAINTS OF PAIN. PT STILL RUNNING D5NS AT 80CC/HR PER ORDER AND TOLERATING WELL. ALL NEEDS MET AT THIS TIME, WILL CONTINUE TO MONITOR AND REPORT TO DAY RN
--- NOTE | 2020-09-16 06:13 | NUR ---
PT REPORTS PAIN IN LOWER ABD UPON WAKING UP IN AM. PT GIVEN MORPHINE PRN WITH ZOFRAN. PT TOLERATED WELL AND NOW REPORTS NO PAIN. WILL CONTINUE TO MONITOR
[2020-09-16 06:53] VITALS: BP 135/85
--- NOTE | 2020-09-16 07:45 | NUR ---
PT AAOX 4 DUTCH SPEAKING. (+) RADIAL/PEDAL PULSES NO EDEMA. BILAT CLEAR LUNG SOUNDS PT AT ROOM AIR O2SAT 97%. GEN WEAKNESS, AMBULATORY WITHOUT ASSISTANCE. SKIN INTACT. PT C/O ABD PAIN GAVE PAIN MEDICATION AND ANTI NAUSEA. PT HAS S/L ON RFA 22G D5NS IS RUNNING AT 80ML/HR. PT CALM AND COOPERATIVE. CALL LIGHT WITHIN REACH, BED LOCKED AND AT LOWEST POSITION.
[2020-09-16 07:58] LABS: BASOPHIL % 0.1 % (0.2-1.5); PLATELET COUNT 229 x10^3mcL (152-348)
[2020-09-16 08:27] LABS: ALKALINE PHOSPHATASE 86 U/L (46-116); ALT/SGPT 56 U/L (16-63); AST/SGOT 22 U/L (15-37); BILIRUBIN TOTAL 0.4 mg/dL (0.20-1.00); CALCIUM 7.9 mg/dL (8.5-10.1); CHLORIDE SERUM 108 mmol/L (98-107); CREATININE SERUM 0.7 mg/dL (0.7-1.3); GFR1 > 60 mL/min; GLUCOSE SERUM 120 mg/dL (74-106); MAGNESIUM 2.3 mg/dL (1.8-2.4); POTASSIUM SERUM 3.4 mmol/L (3.5-5.1); SODIUM SERUM 143 mmol/L (136-145)
[2020-09-16 08:28] LABS: ALBUMIN 1.7 g/dL (3.4-5.0); TOTAL PROTEIN, SERUM 5.5 g/dL (6.4-8.2)
[2020-09-16 08:56] VITALS: BP 132/76
[2020-09-16 08:59] LABS: RED CELL DISTRIBUTION WIDTH 14.7 % (12.1-16.2)
[2020-09-16 12:10] VITALS: BP 154/87
[2020-09-16 17:10] VITALS: BP 144/87
[2020-09-16 20:57] VITALS: BP 128/74
[2020-09-17 06:22] VITALS: BP 157/66
--- NOTE | 2020-09-17 06:33 | NUR ---
PATIENT RESTING IN BED. C/O ABDOMINAL PAIN. INFORMED PATIENT MORPHINE 4MG IS NOT DUE UNTIL 0700. RN TO INFORM ONCOMING RN THAT PATIENT MAY NEED BREAKTHROUGH MEDICATION ORDER AND FOLLOW-UP WITH MD.
[2020-09-17 07:30] LABS: BASOPHIL % 0.1 % (0.2-1.5); PLATELET COUNT 260 x10^3mcL (152-348)
[2020-09-17 07:40] LABS: RED CELL DISTRIBUTION WIDTH 14.6 % (12.1-16.2)
[2020-09-17 07:43] LABS: rbc morphology (normal/abnorm) NORMAL (NORMAL)
--- NOTE | 2020-09-17 07:50 | NUR ---
PT AAOX 4 BRAZILIAN SPEAKING (+) RADIAL/PEDAL PULSES, NO EDEMA. PT IS AT ROOM AIR O2SAT 100%. GI/ HYPOACTIVE BS. LAST BM 09/15, USES URINAL AMBULATORY W/O ASSISTANCE. SKIN INTACT. PT HAS S/L RFA 22G WITH D51/2NS [id number] RUNING AT 83.3ML/HR. PT CALM AND COOPERATIVE. CALL LIGHT WITHIN REACH, BED LOCKED AND AT LOWEST POSITION.
[2020-09-17 07:56] LABS: ALKALINE PHOSPHATASE 84 U/L (46-116); ALT/SGPT 42 U/L (16-63); AST/SGOT 14 U/L (15-37); BILIRUBIN TOTAL 0.42 mg/dL (0.20-1.00); CALCIUM 8.7 mg/dL (8.5-10.1); CHLORIDE SERUM 108 mmol/L (98-107); CREATININE SERUM 0.8 mg/dL (0.7-1.3); GFR1 > 60 mL/min; GLUCOSE SERUM 129 mg/dL (74-106); MAGNESIUM 2.4 mg/dL (1.8-2.4); POTASSIUM SERUM 3.8 mmol/L (3.5-5.1); SODIUM SERUM 144 mmol/L (136-145)
[2020-09-17 08:01] LABS: ALBUMIN 1.8 g/dL (3.4-5.0); TOTAL PROTEIN, SERUM 6.1 g/dL (6.4-8.2)
[2020-09-17 08:54] VITALS: BP 148/86
[2020-09-17 14:52] VITALS: BP 135/74
[2020-09-17 18:45] VITALS: BP 145/74
[2020-09-17 19:27] VITALS: BP 142/84
--- NOTE | 2020-09-17 20:45 | NUR ---
2044 SEEN PT ON SIDE LYING POSITION; PT IS ALERT AND ORIENTED X4; AMBULATORY NOT IN RESP DISTRESS; CO ABDL PAIN 03/30; IVF INFUSING @ 83 ML/HR; POC EXPLAINED PT VERBALIZED UNDERSTANDING. KEPT CALL LIGHT IN REACH.
[2020-09-18 04:46] VITALS: BP 152/83
--- NOTE | 2020-09-18 05:46 | NUR ---
0530 DUE MEDS ADMINISTERED; BS 144 MG/DL; DENIES ANY DISCOMFORT AT THIS TIME;KEPT CALL LIGHT IN REACH.
--- NOTE | 2020-09-18 07:02 | NUR ---
Shift report done at bedside. Pt is awake with complaints of left groin pain. Pt denies chest pain. VS are stabel, no distress noted. Pt's lung sounds are clear anteriorly and posteriorly. Pt's stomach is distended, no complaints of pain when palpated. Pt ambulated to the bathroom. Safety measures will be maintained. Upper side rails up, call light with in reach, non-slip socks on. Pt will continued to be assessed and monitored.
[2020-09-18 07:55] LABS: BASOPHIL % 0.3 % (0.2-1.5); PLATELET COUNT 265 x10^3mcL (152-348); RED CELL DISTRIBUTION WIDTH 14.5 % (12.1-16.2)
[2020-09-18 08:22] LABS: ALKALINE PHOSPHATASE 69 U/L (46-116); ALT/SGPT 35 U/L (16-63); AST/SGOT 16 U/L (15-37); BILIRUBIN TOTAL 0.4 mg/dL (0.20-1.00); CALCIUM 7.7 mg/dL (8.5-10.1); CARBON DIOXIDE 24.9 mmol/L (21-32); CHLORIDE SERUM 105 mmol/L (98-107); CREATININE SERUM 0.7 mg/dL (0.7-1.3); GFR1 > 60 mL/min; GLUCOSE SERUM 119 mg/dL (74-106); POTASSIUM SERUM 3.4 mmol/L (3.5-5.1); SODIUM SERUM 139 mmol/L (136-145)
[2020-09-18 08:23] LABS: ALBUMIN 1.7 g/dL (3.4-5.0); TOTAL PROTEIN, SERUM 5.6 g/dL (6.4-8.2)
[2020-09-18 09:32] VITALS: BP 146/81
[2020-09-18] MEDS ORDERED: KEFLEX750 M1 PO (11:55)
[2020-09-18] MEDS ORDERED: FLAGYL500 MG PO (11:56)
[2020-09-18 12:13] VITALS: BP 136/81
--- NOTE | 2020-09-18 15:52 | NUR ---
Initial Nutrition Assessment: 258A TARA ACOSTA 64M MR Dx: abd pain, pneumoperitoneum PMHx: none noted PSHx: none noted Labs: (09/18) H/H 10.9/32L, K 3.4L, BG 119H, POC BG 144H, Ca 7.7L, Albumin 1.7L, (09/15) CRP 9.6H, Meds: Tylenol, Lovenox, Miralax, Protonix, Zosyn, D5-1/2NS/KCL2, morphine sulfate, Zofran Diet: Full liquid diet PO intake since admission: (09/17) L: 100% Ht: 152.4cm/60in Wt: 84.397kg/186lbs BMI: 36.3kg/m2 Bed scale: not able to obtain d/t isolation IBW: 48.18kg/106lbs %IBW: 175.16% Adjusted BW: 57kg UBW: not able to obtain d/t isolation Age: 64 Food Allergies: no food allergies reported by pt per RN Edema: none noted Last BM: 09/16 Skin: skin intact Jay: 22 Per H and P (09/18), pt is a 64-year-old male with obesity presents to ER with 3 days of abdominal pain with nausea. No vomiting, diarrhea, fever or chills, urinary symptoms. BMs have been regular and last BM was yesterday. In ER, BP 127/61, HR 96 bpm, temp 98.4 F. Labs: WBC 14.7, lactic acid 1.4, bii 1.9, AST 84, ALT 89, lipase 197, UA negative. CT abd/pelvis - several small bubbles of free air are noted within the peritoneum of the abdomen and pelvis. Colonic diverticulosis. Normal appendix. No bowel obstruction. No obstructive uropathy. Subtle bilateral groundglass opacities at the lung bases may represent dependent atelectasis or resolving/early COVID19 infection. Pt received IV antibiotics and was admitted Surgery and gastroenterology consulted. Pt's COVID PCR positive. No cough, SOB Pt was admitted with dx: acute abd pain RD Note (09/18/2020) Per progress note (09/17), pt's abd pain is better, he has been started on liquid diet this morning, abd X-ray today shows possible ileus, negative obstruction; per assessment: acute abd pain with nausea, possible diverticulitis, possible ileus, COVID [address] tried to contact pt via bedside phone, but pt did not respond. Per pt's primary RN, pt had good appetite this morning and finished 100% of breakfast. RN mentioned that pt appeared to be tolerating diet with no GI distress or chewing/swallowing difficulty. Problem with: N/V/D/C: none per RN Problems with: Chewing: Swallowing: none per RN Current appetite: good per RN Recent wt change: not able to obtain %wt change: not able to obtain Vitamin/Supplement use: none noted in H and P (09/18) Special diet at home: not able to obtain Physical activity: not able to obtain Nutrition education given (specify specific nutrition education and handout given): not given d/t pt in isolation and not responding to pt's phone. Food-drug interactions? Education given? n/a Estimated Nutritional Needs Based on adjusted body weight (57kg) Energy: 1425-1710kcal/day (25-30 kcal/kg for COVID) Protein: 85-114 g/day (1.5-2 g/kg for COVID) Fluid: 9381-9421 mL/day (1 mL/kcal) Nutrition Diagnosis: 1. Increased energy and protein needs r/t viral infection a/e/b pt is COVID positive. 2. Altered GI function r/t possible diverticulitis or ileus a/e/b pt was admitted with acute abd pain with nausea, and currently on full liquid diet. Intervention 1. Recommend continue full liquid diet as necessary. 2. Recommend regular diet when appropriate to advance pt's diet to solid. Monitor/Evaluate Goal: PO intake at least 75% of estimated needs Monitor: PO intake, Diet advancement, Labs, GI function F/U in 3-5 days as moderate risk 2/1-3
--- NOTE | 2020-09-18 15:52 | NUR ---
1. Recommend continue full liquid diet as necessary. 2. Recommend regular diet when appropriate to advance pt's diet to solid.
[2020-09-18 16:33] VITALS: BP 136/81
--- NOTE | 2020-09-18 17:00 | NUR ---
Pt was discharged. Pt was stable upon discharge. He verbalized understanding of the discharge education and the f/u PCP appointment as well as taking all antibiotics as prescribed. Pt ambulated to the car.
== END 2020-09-18 17:04 | disposition home or self-care (01) | DRG 244 ==
LOC: ED 06:22 → MU 11:55 → DU 11:55 → MU 13:57
PROVIDERS: Emergency Medicine; ADMIT Internal Medicine; ATTEND Internal Medicine
DX: K57.20 Diverticulitis of large intestine with perforation and abscess without bleeding (principal); U07.1 COVID-19; K66.8 Other specified disorders of peritoneum; K56.7 Ileus, unspecified; E66.01 Morbid (severe) obesity due to excess calories; D72.829 Elevated white blood cell count, unspecified; Z20.822 Contact with and (suspected) exposure to COVID-19; Z79.899 Other long term (current) drug therapy; Z79.891 Long term (current) use of opiate analgesic; Z79.01 Long term (current) use of anticoagulants; Z68.35 Body mass index [BMI] 35.0-35.9, adult; J12.82 Pneumonia due to coronavirus disease 2019
CPT/HCPCS: 82962; 85378; C9113; G0378; J1650; J1885; J2270; J2405; J2543; J3480; J3490; J7030; J7042; J7050; Q9966; Q9967; U0003